=== PATIENT | male | born 1985 | race African-American/Black ===

== ENCOUNTER 2018-11-19 18:42 | Emergency (ER) | payer SELFPAY ==
[2018-11-19] MEDS ORDERED: Ketorolac 60 MG/2 ML SDV IM ONE (19:10)
--- NOTE | 2018-11-19 19:19 | EDM.PDOC ---
<Jeannine Cazares - Last Filed: 11/19/18 19:10> ED HPI GENERAL MEDICAL PROBLEM - General Chief Complaint: Headache Stated Complaint: HEADACHE Time Seen by Provider: 11/19/18 18:44 - History of Present Illness INITIAL COMMENTS - FREE TEXT/NARRATIVE: History of present illness: 33-year-old male presents to the emergency department with complaints of neck pain and headache onset last to 3 weeks. He has been sitting in training for the last 2 weeks for his job. He does also like to work out at the gym and denies doing any shoulder processes may have caused neck injury. His primary modality of tenderness is running and sit ups. He states he's tried tension headache medication [id number] and his coworker provided him ibuprofen today. Ibuprofen did provide relief to his complaints of headache. Did share that he is having trouble sleeping due to neck discomfort and headache. Identified patient does not use a pillow to support his head and neck when sleeping. Denies visual changes, nausea or vomiting, dizziness, or change in appetite. No recent weight loss and no difficulty with voiding. Review of systems: As per history of present illness and below otherwise all systems reviewed and negative. Past medical history: As per history of present illness and as reviewed below otherwise noncontributory. Surgical history: As per history of present illness and as reviewed below otherwise noncontributory. Social history: No reported history of drug or alcohol abuse. Family history: As per history of present illness and as reviewed below otherwise noncontributory. Physical exam: General: Well-developed well-nourished 33-year-old in mild distress with headache and neck pain. HEENT: Atraumatic, normocephalic, pupils reactive, negative for conjunctival pallor or scleral icterus, mucous membranes moist, throat clear, neck supple, tender to active range of motion, trachea midline. Neck is also tender to palpation in the muscular areas. Lungs: Clear to auscultation, breath sounds equal bilaterally, chest nontender. Heart: S1S2, regular, negative for clicks, rubs, or JVD. Abdomen: Soft, nondistended, nontender. Negative for masses or hepatosplenomegaly. Negative for costovertebral tenderness. Pelvis: Stable nontender. Genitourinary: Deferred. Rectal: Deferred. Extremities: Atraumatic, negative for cords or calf pain. Neurovascular unremarkable. Skin: Intact, warm, dry. No lesions, rashes are noted. Neuro: Awake, alert, oriented. Cranial nerves II through XII unremarkable. Cerebellum unremarkable. Motor and sensory unremarkable throughout. Exam nonfocal. Diagnostics: None Therapeutics: Toradol 60 mg IM Norflex 60 mg IM Impression: Tension headache with neck strain Plan: Discharge home with diclofenac - take as discussed Encourage use of pillow with neck support for sleep. Follow-up with primary care provider as discussed Definitive disposition and diagnosis as appropriate pending reevaluation and review of above. headache Pain Score (Numeric/FACES): 9 - Related Data Allergies Allergy/AdvReac Type Severity Reaction Status Date / Time No Known Allergies Allergy Verified 11/19/18 18:53 Home Meds: Home Meds Cyclobenzaprine [Flexeril] 1 tab PO TID PRN #20 tab 11/19/18 [Rx] Diclofenac Sodium [Voltaren] 75 mg PO BIDMEALS PRN #20 tab.ec 11/19/18 [Rx] Past Medical History - Past Health History Medical/Surgical History: Denies Medical/Surgical History Social & Family History - Family History Family Medical History: Noncontributory - Tobacco Use Smoking Status *Q: Never Smoker - Recreational Drug Use Recreational Drug Use: No Course - Vital Signs Last Recorded V/S: Last Vital Signs Temp 36.4 C 11/19/18 18:50 Pulse 66 11/19/18 18:50 Resp 18 11/19/18 18:50 BP 128/74 11/19/18 18:50 Pulse Ox 100 11/19/18 18:50 - Orders/Labs/Meds Orders: Active Orders 24 hr Category Date Time Status Orphenadrine [Norflex] Med 11/19/18 19:15 Ordered 60 mg IM Q12H Medication Orders Orphenadrine Citrate (Norflex) 60 mg IM Q12H HARRIETT Last Admin: 11/19/18 19:27 Dose: 60 mg Meds: Medications Generic Name Dose Route Start Last Admin Trade Name Freq PRN Reason Stop Dose Admin Orphenadrine Citrate 60 mg 11/19/18 19:15 11/19/18 19:27 Norflex IM 60 mg Q12H HARRIETT Administration Discontinued Medications Generic Name Dose Route Start Last Admin Trade Name Freq PRN Reason Stop Dose Admin Ketorolac Tromethamine 60 mg 11/19/18 19:10 Toradol IM 11/19/18 19:11 ONETIME ONE Departure - Departure Disposition: Home, Self-Care 01 Clinical Impression: Neck muscle strain Qualifiers: Encounter type: initial encounter Qualified Code(s): S16.1XXA - Strain of muscle, fascia and tendon at neck level, initial encounter - Discharge Information Prescriptions: Cyclobenzaprine [Flexeril] 1 tab PO TID PRN #20 tab PRN Reason: Muscle Spasm Diclofenac Sodium [Voltaren] 75 mg PO BIDMEALS PRN #20 tab.ec PRN Reason: Pain Referrals: PCP,None [Primary Care Provider] - [facility] [Outside] [facility] [Outside] Forms: ED Department Discharge Additional Instructions: The following information is given to patients seen in the emergency department who are being discharged to home. This information is to outline your options for follow-up care. We provide all patients seen in our emergency department with a follow-up referral. The need for follow-up, as well as the timing and circumstances, are variable depending upon the specifics of your emergency department visit. If you don't have a primary care physician on staff, we will provide you with a referral. We always advise you to contact your personal physician following an emergency department visit to inform them of the circumstance of the visit and for follow-up with them and/or the need for any referrals to a consulting specialist. The emergency department will also refer you to a specialist when appropriate. This referral assures that you have the opportunity for follow-up care with a specialist. All of these measure are taken in an effort to provide you with optimal care, which includes your follow-up. Under all circumstances we always encourage you to contact your private physician who remains a resource for coordinating your care. When calling for follow-up care, please make the office aware that this follow-up is from your recent emergency room visit. If for any reason you are refused follow-up, please contact the [facility] Emergency Department at and asked to speak to the emergency department charge nurse. 1. Diclofenac twice daily with food 2. Flexeril 10 mg 3 times a day as needed for muscle relaxant. No driving or operating machinery 3. Warm or cool packs whichever feels best 20 minutes every 3-4 hours as needed 4. Follow-up in primary care. Avoid triggering activities 5. Purchase a neck support pillow and use it! - My Orders Last 24 Hours: My Active Orders 11/19/18 19:15 Orphenadrine [Norflex] 60 mg IM Q12H - Assessment/Plan Last 24 Hours: My Active Orders 11/19/18 19:15 Orphenadrine [Norflex] 60 mg IM Q12H <Marly Mendez R - Last Filed: 11/19/18 19:31> ED ROS GENERAL - Review of Systems Review Of Systems: ROS reveals no pertinent complaints other than HPI. - Physical Exam Exam: See Below Departure - Departure Time of Disposition: 19:28 Condition: Good
== END 2018-11-19 19:50 | disposition home or self-care (01) ==
LOC: MW.ED 18:42
DX: S16.1XXA Strain of muscle, fascia and tendon at neck level, initial encounter (principal); G44.209 Tension-type headache, unspecified, not intractable; X50.9XXA Other and unspecified overexertion or strenuous movements or postures, initial encounter
CPT/HCPCS: 96372; 99283; J1885; J2360